=== PATIENT | female | born 1985 | race Caucasian/White ===

== ENCOUNTER 2022-01-16 15:33 | Emergency (ER) | payer OTHER ==
[~2022-01-16] VITALS: Ht 175.3 cm; Wt 105.7 kg
[2022-01-16 15:52] VITALS: BP 119/86
[2022-01-16 16:49] LABS: BASOPHILS % (AUTO) 0.3 % (0.0-2.0); EOSINOPHILS # (AUTO) 0.2 K/uL (0-0.4); EOSINOPHILS % (AUTO) 2.4 % (0.0-4.0); HEMOGLOBIN 13.3 g/dL (12.0-16.0); LYMPHOCYTES # (AUTO) 2.8 K/uL (2.5-16.5); LYMPHOCYTES % (AUTO) 28.2 % (20.5-51.1); MEAN CORPUSCULAR HEMOGLOBIN 28 pg (27-31); MEAN CORPUSCULAR HGB CONC 33 g/dL (33-37); MEAN CORPUSCULAR VOLUME 83.9 fL (80-94); MONOCYTES # (AUTO) 0.6 K/uL (0.8-1.0); MONOCYTES % (AUTO) 6.1 % (1.7-9.3); NEUTROPHILS # (AUTO) 6.3 K/uL (1.8-7.7); PLATELET COUNT (AUTO) 277 K/uL (140-450); RED BLOOD CELL COUNT(AUTO) 4.77 MIL/uL (4.20-5.40); RED CELL DISTRIBUTION WIDTH 14.5 % (11.6-13.7)
[2022-01-16 18:02] LABS: BILIRUBIN,URINE NEGATIVE (NEGATIVE); BLOOD, URINE 3+ (NEGATIVE); COLOR,URINE YELLOW (YELLOW); LEUKOCYTE ESTERASE ,URINE NEGATIVE (NEGATIVE); NITRITE, URINE NEGATIVE (NEGATIVE); UGLUCOSE NEGATIVE (NEGATIVE)
[2022-01-16 18:15] LABS: APPEARANCE,URINE CLEAR (CLEAR); RBC,URINE >100 /HPF (0-5); WBC,URINE 0-5 /HPF (0-5)
--- NOTE | 2022-01-16 18:45 | NUR ---
PT D/C BY DR JOSÉ Patient discharged with v/s stable. Written and verbal after care instructions given and explained. Patient verbalized understanding. Ambulatory with steady gait. All questions addressed prior to discharge. Advised to follow up with PMD.
== END 2022-01-16 18:45 | disposition home or self-care (01) ==
LOC: MED 15:33
DX: O20.0 Threatened abortion (principal); Z3A.01 Less than 8 weeks gestation of pregnancy
CPT/HCPCS: 36415; 76817; 81001; 81025; 84702; 85025; 86900; 86901; 99284; Q0092

== ENCOUNTER 2022-01-18 15:36 | Emergency (ER) | payer OTHER ==
[~2022-01-18] VITALS: Ht 175.3 cm; Wt 107.2 kg
[2022-01-18 15:44] VITALS: BP 118/81
--- NOTE | 2022-01-18 16:00 | NUR ---
BIB SELF FOR RECHECK. SEEN HERE FOR THREATENED MISCARRIAGE 2 DAYS AGO. C/O VAGINAL BLEEDING 1 WEEK. A3. 4 WEEKS .
--- NOTE | 2022-01-18 19:17 | NUR ---
Patient ambulated to bed 8 with steady gait.
--- NOTE | 2022-01-18 19:52 | NUR ---
36 y/o female c/o vaginal bleedingx 1 week. Patient was seen on 01/16/22 for threatened miscarriage. Patient is 4 weeks . Denies pain, fever or chills. [id number] Medical History: Denies NKDA
--- NOTE | 2022-01-18 20:44 | NUR ---
Dr. Merritt re-evaluating patient at bedside.
[2022-01-18 20:57] VITALS: BP 125/91
--- NOTE | 2022-01-18 20:57 | NUR ---
Patient discharged with v/s stable. Written and verbal after care instructions given. Patient verbalized understanding. Ambulatory with steady gait. All questions addressed prior to discharge. Advised to follow up with PMD.
--- NOTE | 2022-01-18 20:57 | NUR ---
Chart checked and completed.
== END 2022-01-18 20:57 | disposition home or self-care (01) ==
LOC: MED 15:36
DX: O03.9 Complete or unspecified spontaneous abortion without complication (principal); Z88.1 Allergy status to other antibiotic agents
CPT/HCPCS: 36415; 84702; 99283

== ENCOUNTER 2022-05-15 14:44 | Emergency (ER) | payer OTHER ==
[~2022-05-15] VITALS: Ht 175.3 cm; Wt 113.4 kg
[2022-05-15 15:10] VITALS: BP 121/70
--- NOTE | 2022-05-15 15:29 | NUR ---
36 Y/O FEMALE BIB SELF C/O VAGINAL BLEEDING WHEN SHE WIPES AND ABD CRAMPING. [id number]. UNK LMP. WAS SEEN BY HER OB,DR CHRISTINE YESTERDAY. DENIES ANY DISCHARGE. DENIES ANY MEDICATION FOR PAIN ALLERGY: AMOXICILLIN PMH: DENIES
[2022-05-15 15:43] LABS: BILIRUBIN,URINE NEGATIVE (NEGATIVE); BLOOD, URINE 2+ (NEGATIVE); COLOR,URINE YELLOW (YELLOW); LEUKOCYTE ESTERASE ,URINE TRACE (NEGATIVE); NITRITE, URINE NEGATIVE (NEGATIVE); UGLUCOSE NEGATIVE (NEGATIVE)
[2022-05-15 15:48] LABS: APPEARANCE,URINE CLOUDY (CLEAR)
[2022-05-15 15:51] LABS: BASOPHILS % (AUTO) 0.2 % (0.0-2.0); EOSINOPHILS # (AUTO) 0.1 K/uL (0-0.4); HEMATOCRIT 39.3 % (36-48); HEMOGLOBIN 13.1 g/dL (12.0-16.0); LYMPHOCYTES # (AUTO) 2.6 K/uL (2.5-16.5); LYMPHOCYTES % (AUTO) 25.3 % (20.5-51.1); MEAN CORPUSCULAR HEMOGLOBIN 28 pg (27-31); MEAN CORPUSCULAR HGB CONC 33 g/dL (33-37); MEAN CORPUSCULAR VOLUME 83.9 fL (80-94); MONOCYTES # (AUTO) 0.7 K/uL (0.8-1.0); MONOCYTES % (AUTO) 6.5 % (1.7-9.3); NEUTROPHILS # (AUTO) 6.9 K/uL (1.8-7.7); PLATELET COUNT (AUTO) 241 K/uL (140-450); RED BLOOD CELL COUNT(AUTO) 4.68 MIL/uL (4.20-5.40); WHITE BLOOD COUNT (AUTO) 10.3 K/uL (4.8-10.8)
[2022-05-15 16:09] LABS: RBC,URINE 0-5 /HPF (0-5)
[2022-05-15 16:14] LABS: ALBUMIN 3.2 g/dL (3.4-5.0); ANION GAP 11.7 (8-16); CREATININE 0.7 mg/dL (0.6-1.3); POTASSIUM 3.7 mmol/L (3.5-5.1); TOTAL BILIRUBIN 0.2 mg/dL (0.0-1.0)
[2022-05-15] MEDS ORDERED: NITROFURANTOIN 100 MG CAP PO SCH (17:00)
[2022-05-15] MEDS ORDERED: NITR100C7 PO (17:09)
== END 2022-05-15 17:26 | disposition home or self-care (01) ==
LOC: MED 14:44
DX: O20.0 Threatened abortion (principal); O23.41 Unspecified infection of urinary tract in pregnancy, first trimester; O23.591 Infection of other part of genital tract in pregnancy, first trimester; B37.49 Other urogenital candidiasis; Z3A.14 14 weeks gestation of pregnancy; Z79.2 Long term (current) use of antibiotics; Z88.0 Allergy status to penicillin
CPT/HCPCS: 36415; 76801; 80053; 81001; 81025; 84702; 85025; 86886; 86900; 86901; 87086; 99284; Q0092

== ENCOUNTER 2022-08-29 09:42 | Observation (INO) | payer OTHER ==
[~2022-08-29] VITALS: Ht 175.3 cm; Wt 115.7 kg
[~2022-08-29 09:42] MED LIST: NITR100C7 PO
[2022-08-29 10:03] VITALS: BP 125/75
[2022-08-29] MEDS ORDERED: PRETAB PO (10:14)
[2022-08-29] MEDS ORDERED: VITB12 PO (10:14)
[2022-08-29] MEDS ORDERED: VITD400 PO (10:15)
[2022-08-29] MEDS ORDERED: NACL 0.9% 1,000 ML IV SCH (11:15)
[2022-08-29 11:22] LABS: APPEARANCE,URINE CLEAR (CLEAR); BILIRUBIN,URINE NEGATIVE (NEGATIVE); BLOOD, URINE 3+ (NEGATIVE); COLOR,URINE YELLOW (YELLOW); LEUKOCYTE ESTERASE ,URINE 2+ (NEGATIVE); NITRITE, URINE NEGATIVE (NEGATIVE); PH,URINE 6.5 (5.0-9.0); UGLUCOSE NEGATIVE (NEGATIVE)
[2022-08-29 11:33] LABS: RBC,URINE 11-20 (MOD) /HPF (0-5)
[2022-08-29] MEDS ORDERED: COMMUNICATION ORDER MC SCH (13:15)
[2022-08-29] MEDS ORDERED: CLINDAMYCIN 600MG/D5W PM 50 ML IV SCH (13:30)
[2022-08-29] MEDS ORDERED: NACL 0.9% IV SCH (13:35)
[2022-08-29] MEDS ORDERED: CLINDAMYCIN IV SCH (13:35)
== END 2022-08-29 14:27 | disposition home or self-care (01) ==
LOC: MLD 09:42
PROVIDERS: ADMIT Obstetrics & Gynecology; ATTEND Obstetrics & Gynecology
DX: O23.43 Unspecified infection of urinary tract in pregnancy, third trimester (principal); O46.93 Antepartum hemorrhage, unspecified, third trimester; Z3A.28 28 weeks gestation of pregnancy
CPT/HCPCS: 59025; 76817; 81001; 87086; 96361; 96365; G0378; J3490; Q0092

== ENCOUNTER 2022-09-30 11:57 | Observation (INO) | payer OTHER ==
[~2022-09-30] VITALS: Ht 175.3 cm; Wt 79.4 kg
[~2022-09-30 11:57] MED LIST changes: -NITR100C7 PO; +PRETAB PO; +VITB12 PO; +VITD400 PO
[2022-09-30] MEDS ORDERED: ASPI-1749 PO (13:18)
--- NOTE | 2022-09-30 13:38 | NUR ---
PATIENT HAS BEEN SCREENED AND CATEGORIZED LOW NUTRITION RISK. PATIENT WILL BE SEEN WITHIN 7 DAYS OF ADMISSION. 10/07/[address]
[2022-09-30 13:56] LABS: BASOPHILS % (AUTO) 0.2 % (0.0-2.0); EOSINOPHILS % (AUTO) 0.4 % (0.0-4.0); HEMOGLOBIN 12.8 g/dL (12.0-16.0); LYMPHOCYTES # (AUTO) 1.7 K/uL (2.5-16.5); MEAN CORPUSCULAR HEMOGLOBIN 28 pg (27-31); MEAN CORPUSCULAR HGB CONC 33 g/dL (33-37); MEAN CORPUSCULAR VOLUME 84.8 fL (80-94); MONOCYTES # (AUTO) 0.5 K/uL (0.8-1.0); NEUTROPHILS # (AUTO) 5.5 K/uL (1.8-7.7); NEUTROPHILS % (AUTO) 70.4 % (42.2-75.2); PLATELET COUNT (AUTO) 215 K/uL (140-450); RED CELL DISTRIBUTION WIDTH 14.9 % (11.6-13.7); WHITE BLOOD COUNT (AUTO) 7.8 K/uL (4.8-10.8)
[2022-09-30 14:24] LABS: ALBUMIN 2.3 g/dL (3.4-5.0); ANION GAP 12.2 (8-16); CARBON DIOXIDE 25.4 mmol/L (21-32); CREATININE 0.7 mg/dL (0.6-1.3); POTASSIUM 3.6 mmol/L (3.5-5.1); TOTAL BILIRUBIN 0.2 mg/dL (0.0-1.0)
[2022-09-30 15:18] LABS: APPEARANCE,URINE SL CLOUDY (CLEAR); BILIRUBIN,URINE NEGATIVE (NEGATIVE); BLOOD, URINE 2+ (NEGATIVE); COLOR,URINE YELLOW (YELLOW); LEUKOCYTE ESTERASE ,URINE NEGATIVE (NEGATIVE); NITRITE, URINE NEGATIVE (NEGATIVE); UGLUCOSE NEGATIVE (NEGATIVE)
[2022-09-30] MEDS ORDERED: NACL 0.9% 1,000 ML IV SCH (17:30)
== END 2022-09-30 20:12 | disposition home or self-care (01) ==
LOC: MLD 11:57
PROVIDERS: ADMIT Obstetrics & Gynecology; ATTEND Obstetrics & Gynecology
DX: O46.93 Antepartum hemorrhage, unspecified, third trimester (principal); Z20.822 Contact with and (suspected) exposure to COVID-19; Z3A.33 33 weeks gestation of pregnancy
CPT/HCPCS: 36415; 76805; 76817; 80053; 81001; 85025; 85384; 86886; 86900; 86901; 87426; 96361; 96365; G0378; J0696; J7060; Q0092; 59025; J7030

== ENCOUNTER 2022-11-11 11:43 | Inpatient (IN) | payer OTHER ==
[~2022-11-11] VITALS: Ht 175.3 cm; Wt 122.5 kg
[~2022-11-11 11:43] MED LIST changes: +ASPI-1749 PO
[2022-11-11] MEDS ORDERED: ONDANSETRON 4 MG/2 ML VIAL IVP PRN (12:20)
[2022-11-11] MEDS ORDERED: MORPHINE SULFATE 10 MG/ML VIAL IVP PRN (12:20)
[2022-11-11] MEDS ORDERED: OXYTOCIN 20 UNITS in LACTATED RINGERS 1,000 ML IV SCH ×2 (12:30→21:25)
[2022-11-11] MEDS ORDERED: MORPHINE PRES FREE 10 MG/10 ML AMP IV ONE ×2 (12:41→20:38)
[2022-11-11 13:13] LABS: BASOPHILS % (AUTO) 0.2 % (0.0-2.0); EOSINOPHILS # (AUTO) 0.1 K/uL (0-0.4); EOSINOPHILS % (AUTO) 0.9 % (0.0-4.0); HEMATOCRIT 39.4 % (36-48); HEMOGLOBIN 13.1 g/dL (12.0-16.0); LYMPHOCYTES # (AUTO) 2.3 K/uL (2.5-16.5); LYMPHOCYTES % (AUTO) 22.4 % (20.5-51.1); MEAN CORPUSCULAR HEMOGLOBIN 28 pg (27-31); MEAN CORPUSCULAR HGB CONC 33 g/dL (33-37); MEAN CORPUSCULAR VOLUME 84.5 fL (80-94); MONOCYTES # (AUTO) 0.5 K/uL (0.8-1.0); MONOCYTES % (AUTO) 5.4 % (1.7-9.3); NEUTROPHILS # (AUTO) 7.2 K/uL (1.8-7.7); NEUTROPHILS % (AUTO) 71.1 % (42.2-75.2); PLATELET COUNT (AUTO) 225 K/uL (140-450); RED BLOOD CELL COUNT(AUTO) 4.66 MIL/uL (4.20-5.40); RED CELL DISTRIBUTION WIDTH 14.8 % (11.6-13.7); WHITE BLOOD COUNT (AUTO) 10.1 K/uL (4.8-10.8)
[2022-11-11 13:14] LABS: APPEARANCE,URINE CLEAR (CLEAR); BILIRUBIN,URINE NEGATIVE (NEGATIVE); BLOOD, URINE NEGATIVE (NEGATIVE); COLOR,URINE YELLOW (YELLOW); LEUKOCYTE ESTERASE ,URINE NEGATIVE (NEGATIVE); NITRITE, URINE NEGATIVE (NEGATIVE); PH,URINE 6.5 (5.0-9.0); PROTEIN,URINE NEGATIVE (NEGATIVE); UGLUCOSE NEGATIVE (NEGATIVE); UROBILINOGEN,URINE 0.2 EU/dL (0.2 - 1)
[2022-11-11 13:26] LABS: INR 0.9 (0.8-1.2); PARTIAL THROMBOPLASTIN TIME 28.5 secs (22-35.6); PROTHROMBIN TIME 9.5 secs (10.8-13.4)
[2022-11-11 13:27] LABS: ALBUMIN 2.2 g/dL (3.4-5.0); ANION GAP 12.3 (8-16); CALCIUM 8.7 mg/dL (8.5-10.1); CARBON DIOXIDE 24.4 mmol/L (21-32); CREATININE 0.8 mg/dL (0.6-1.3); POTASSIUM 3.7 mmol/L (3.5-5.1); TOTAL BILIRUBIN 0.3 mg/dL (0.0-1.0); TOTAL PROTEIN, SERUM 6.3 g/dL (6.4-8.2)
[2022-11-11] MEDS ORDERED: fentaNYL citrate 0.05 MG/ML VIAL ONE (13:27)
[2022-11-11] MEDS ORDERED: ROPIVACAINE 0.2%/NS PREMIX 200 ML EPI ONE (13:27)
[2022-11-11] MEDS: LACTATED RINGERS 1,000 ML IV SCH ×3 (13:28→19:55)
[2022-11-11 13:51] LABS: HIV RAPID SCREEN NON-REACTIVE (NON REACTIV)
[2022-11-11 14:00] VITALS: BP 122/75; PULSE 104; RESP 20; TEMP 97.9
[2022-11-11] MEDS ORDERED: OXYTOCIN 20 UNITS/LR PREMIX 1,000 ML IV ONE ×2 (14:00→21:01)
[2022-11-11 14:15] LABS: RAPID PLASMA REAGIN NON-REACTIVE (Non Reactiv)
[2022-11-11] MEDS ORDERED: ACETAMINOPHEN 325 MG TAB PO PRN (15:25)
[2022-11-11] MEDS ORDERED: ACETAMINOPHEN 325 MG TAB ONE (15:30)
[2022-11-11] MEDS ORDERED: MEASLES, MUMPS, AND RUBELLA 1 VIAL SQVAC ONE (15:50)
[2022-11-11] MEDS ORDERED: LIDOCAINE MPF 2% 100 MG/5 ML VIAL INJ ONE (20:38)
[2022-11-11] MEDS ORDERED: CLINDAMYCIN 900MG/D5W PM 50 ML IV SCH (20:40)
[2022-11-11] MEDS ORDERED: SODIUM BICARBONATE 8.4% PFS 50 MEQ/50 ML SYR IVP ONE (20:41)
[2022-11-11] MEDS ORDERED: CLINDAMYCIN 900MG/D5W PM 50 ML IV ONE (21:07)
[2022-11-11] MEDS ORDERED: KETOROLAC 30 MG/ML VIAL IVP PRN (21:25)
[2022-11-11] MEDS ORDERED: NALOXONE 0.4 MG/ML VIAL IVP PRN (21:25)
[2022-11-11] MEDS ORDERED: TEMAZEPAM 15 MG CAP PO PRN (21:55)
[2022-11-11] MEDS ORDERED: oxyCODONE/APAP 5/325 MG 1 TAB TAB PO PRN (21:55)
[2022-11-11] MEDS ORDERED: SIMETHICONE 80 MG TAB.CHEW PO PRN (21:55)
[2022-11-12] MEDS: diphenhydrAMINE 50 MG/ML VIAL IVP PRN ×3 (00:09→08:13)
[2022-11-12 05:41] LABS: EOSINOPHILS # (AUTO) 0.1 K/uL (0-0.4); EOSINOPHILS % (AUTO) 0.4 % (0.0-4.0); HEMATOCRIT 36.7 % (36-48); HEMOGLOBIN 12.1 g/dL (12.0-16.0); LYMPHOCYTES # (AUTO) 2.9 K/uL (2.5-16.5); LYMPHOCYTES % (AUTO) 17.5 % (20.5-51.1); MEAN CORPUSCULAR HEMOGLOBIN 28 pg (27-31); MEAN CORPUSCULAR HGB CONC 33 g/dL (33-37); MEAN CORPUSCULAR VOLUME 85.2 fL (80-94); MONOCYTES # (AUTO) 1.1 K/uL (0.8-1.0); MONOCYTES % (AUTO) 6.6 % (1.7-9.3); NEUTROPHILS # (AUTO) 12.4 K/uL (1.8-7.7); NEUTROPHILS % (AUTO) 75.5 % (42.2-75.2); PLATELET COUNT (AUTO) 201 K/uL (140-450); RED BLOOD CELL COUNT(AUTO) 4.31 MIL/uL (4.20-5.40); RED CELL DISTRIBUTION WIDTH 15.3 % (11.6-13.7); WHITE BLOOD COUNT (AUTO) 16.4 K/uL (4.8-10.8)
[2022-11-12] MEDS ORDERED: OXYTOCIN 20 UNITS/LR PREMIX 1,000 ML IV ONE ×2 (08:07→16:00)
[2022-11-12] MEDS: OXYTOCIN 20 UNITS in LACTATED RINGERS 1,000 ML IV SCH ×2 (08:15→16:05)
[2022-11-12] MEDS: bisacodyL 10 MG SUPP RC SCH (09:00)
[2022-11-13] MEDS: oxyCODONE/APAP 5/325 MG 1 TAB TAB PO PRN ×2 (00:34→20:02)
[2022-11-13] MEDS: DOCUSATE SOD/SENNA 50/8.6 MG 1 TAB PO SCH ×2 (02:11→21:06)
[2022-11-13] MEDS: bisacodyL 10 MG SUPP RC SCH (02:14)
[2022-11-14] MEDS: IBUPROFEN 600 MG TAB PO SCH ×3 (00:03→12:14)
[2022-11-14] MEDS ORDERED: CAMERA MC ONE (02:52)
[2022-11-14] MEDS: bisacodyL 10 MG SUPP RC SCH (09:00)
== END 2022-11-14 14:10 | disposition home or self-care (01) | DRG 540 ==
LOC: MLD 11:43 → OBSVTOIN 17:01 → MFCC 23:22
PROVIDERS: ADMIT Obstetrics & Gynecology; ATTEND Obstetrics & Gynecology
PROC: 10D00Z1 Extraction of Products of Conception, Low, Open Approach (ICD-10-PCS; principal; 2022-11-11 20:30)
DX: O24.429 Gestational diabetes mellitus in childbirth, unspecified control (principal); O99.214 Obesity complicating childbirth; Z37.0 Single live birth; Z3A.39 39 weeks gestation of pregnancy; Z20.822 Contact with and (suspected) exposure to COVID-19
CPT/HCPCS: 36415; 80053; 81003; 85025; 85610; 85730; 86592; 86762; 86886; 86900; 86901; 87340; 90715; J1200; J1885; J2001; J2270; J2590; J2795; J3010; J7120